=== PATIENT | male | born 1995 | race Caucasian/White ===

== ENCOUNTER 2017-03-05 00:28 | Emergency (ER) | payer SELFPAY ==
[~2017-03-05] VITALS: Ht 182.9 cm; Wt 77.5 kg
[2017-03-05] MEDS ORDERED: SODIUM CHLORIDE 0.9% 1,000ML IVBOLUS ONE (01:30)
[2017-03-05] MEDS ORDERED: SODIUM CHLORIDE FLUSH 10ML SYR IVF ONE (01:30)
[2017-03-05] MEDS ORDERED: ZIPRASIDONE 20 MG INJ IM ONE ×2 (01:30→01:32)
[2017-03-05 02:49] LABS: BLOOD UREA NITROGEN 14 mg/dL (7-18)
[2017-03-05 04:39] VITALS: BP 94/46
== END 2017-03-05 05:22 | disposition home or self-care (01) ==
LOC: ED 00:36
DX: F15.10 Other stimulant abuse, uncomplicated (principal); M62.82 Rhabdomyolysis; Z02.89 Encounter for other administrative examinations; T50.905A Adverse effect of unspecified drugs, medicaments and biological substances, initial encounter; G92 Toxic encephalopathy; Y92.89 Other specified places as the place of occurrence of the external cause; Z88.0 Allergy status to penicillin
CPT/HCPCS: 36415; 80048; 82040; 82550; 93005; 96360; 96372; 99285; J3486; J7030